=== PATIENT | female | born 1975 | race Caucasian/White ===

== ENCOUNTER 2017-06-16 06:55 | Day surgery (SDC) | payer OTHER ==
[~2017-06-16] VITALS: Ht 165.1 cm; Wt 74.8 kg
[~2017-06-16 06:55] MED LIST: BALANCE B-1001 EAC1 PO; VITAMIN D2000 UNI1 PO
[2017-06-16 07:54] VITALS: BP 112/58
[2017-06-16] MEDS ORDERED: NORCO 5/3251 TABLET PO (09:42)
[2017-06-16] MEDS ORDERED: MOTRIN600 MG PO (09:42)
[2017-06-16 10:32] VITALS: BP 107/65
[2017-06-16 11:40] VITALS: BP 123/61
== END 2017-06-16 12:05 | disposition home or self-care (01) ==
LOC: SDC 06:55
PROC: 0UBC7ZX Excision of Cervix, Via Natural or Artificial Opening, Diagnostic (ICD-10-PCS; principal; 2017-06-16)
DX: N87.1 Moderate cervical dysplasia (principal); F41.9 Anxiety disorder, unspecified; Z87.891 Personal history of nicotine dependence; Z80.8 Family history of malignant neoplasm of other organs or systems; Z88.0 Allergy status to penicillin; Z88.2 Allergy status to sulfonamides
CPT/HCPCS: 88305; 88342 TC; J1100; J1885; J2250; J2405; J3010